=== PATIENT | female | born 1940 | race Caucasian/White ===

== ENCOUNTER → 2016-10-29 | Outpatient (CLI) | payer MEDICARE ==
--- NOTE | 2016-10-29 19:40 | US ---
EXAMINATION TYPE: US venous doppler duplex LE DATE OF EXAM: 10/29/2016 7:26 PM COMPARISON: NONE CLINICAL HISTORY: R60.0 Localized edema, Positive D Dimer. SIDE PERFORMED: Bilateral TECHNIQUE: The lower extremity deep venous system is examined utilizing real time linear array sonog carlitos with graded compression, doppler sonography and color-flow sonography. VESSELS IMAGED: External Iliac Vein (EIV) Common Femoral Vein Deep Femoral Vein Greater Saphenous Vein * Femoral Vein Popliteal Vein Small Saphenous Vein * Proximal Calf Veins (* superficial vessels) Right Leg: Negative for DVT Left Leg: Negative for DVT IMPRESSION: Grayscale, color doppler, spectral doppler imaging performed of the deep veins of the lo wer extremities. There is normal flow, compressibility, vascular waveforms bilaterally. No evidence of deep venous thrombosis in both legs.
== END | disposition home or self-care (01) ==
LOC: RADUSMAIN 19:02
PROVIDERS: ATTEND Family Medicine
DX: R60.0 Localized edema (principal); R79.1 Abnormal coagulation profile
CPT/HCPCS: 93970

== ENCOUNTER → 2017-04-28 | Outpatient (CLI) | payer MEDICARE ==
--- NOTE | 2017-04-28 08:37 | CT ---
EXAMINATION TYPE: CT chest wo con DATE OF EXAM: 04/28/2017 COMPARISON: NONE HISTORY: Interstitial lung disease CT DLP: 781.80 mGycm High-resolution noncontrast CT of the chest was performed with the patient in the prone and supine po sitions. Lung and mediastinal window settings are submitted. Noted are diminished lung volumes. Subpleural fibrosis seen at the lung bases as well as the upper lo bes right somewhat greater than left. There is no evidence for bronchiectasis, groundglass infiltrate , nodule or mass. No pleural effusion is identified. I do not see evidence for hilar or mediastinal mass or adenopathy. Small fixed hiatal hernia identified. IMPRESSION: 1. Diminished lung volumes with subpleural fibrosis as discussed.
== END | disposition home or self-care (01) ==
LOC: RADCTMAIN 07:38
PROVIDERS: ATTEND Internal Medicine Critical Care Medicine
DX: J98.4 Other disorders of lung (principal); J84.10 Pulmonary fibrosis, unspecified
CPT/HCPCS: 71250

== ENCOUNTER → 2018-04-06 | Outpatient (CLI) | payer MEDICARE ==
--- NOTE | 2018-04-06 09:15 | CT ---
EXAMINATION TYPE: High-resolution CT chest wo con DATE OF EXAM: 04/06/2018 COMPARISON: 04/28/2017 HISTORY: 77-year-old female follow-up Pulmonary Fibrosis TECHNIQUE: Contiguous high-resolution axial scanning of the chest utilizing 1 mm slice thickness and 1 cm gap or HRCT protocol without IV contrast. Both prone and supine imaging was performed. CT DLP: 181 mGycm Automated exposure control for dose reduction was used. FINDINGS: Heart borderline to mildly enlarged without pericardial effusion. A PFO closure device is present. Allowing for HRCT technique, prominent but nonenlarged 7 mm precarinal lymph node is noted. Otherwise , no thoracic lymphadenopathy seen. Aorta normal caliber with very direct takeoff of the left vertebral artery directly from the aortic a rch. There are increasing groundglass changes within the lungs. No jalyn honeycombing. No bronchiectasis. No discrete cystic change, consolidation, or pleural effusion. There is extensive respiratory motion further limiting assessment for pulmonary nodules. Some septal thickening and subpleural reticular changes There is a small to moderate size hiatal ji ia with some post surgical changes at the GE junction. Correlate as to the type of prior surgery. Bones: No osseous destructive process seen. IMPRESSION: 1. INCREASING GROUNDGLASS CHANGES COMPARED TO LAST YEAR. SUBPLEURAL RETICULATIONS REMAIN, GREATER IN THE LOWER LUNGS. NO HONEYCOMBING. CORRELATE FOR POSSIBLE ETIOLOGIES SUCH NSIP, DIP, OR HYPERSENSIT IVITY PNEUMONITIS. 2. SMALL TO MODERATE SIZE HIATAL HERNIA. THERE ARE SOME POSTSURGICAL CHANGES AT THE GE JUNCTION. ANDREW ELATE TO THE TYPE OF PRIOR SURGERY.
== END | disposition home or self-care (01) ==
LOC: RADCTMAIN 08:02
PROVIDERS: ATTEND Internal Medicine Critical Care Medicine
DX: J84.10 Pulmonary fibrosis, unspecified (principal); Z98.890 Other specified postprocedural states; Z88.0 Allergy status to penicillin; Z88.2 Allergy status to sulfonamides
CPT/HCPCS: 71250

== ENCOUNTER → 2020-05-17 | Outpatient (CLI) | payer MEDICARE ==
--- NOTE | 2020-05-17 14:15 | PE ---
EXAMINATION TYPE: PET CT fusion skull to thigh DATE OF EXAM: 05/17/2020 COMPARISON: Chest CT April 06, 2018 HISTORY: Breast cancer progress study. 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 TECHNIQUE: Following the intravenous administration of 12.6 mCi of F-18 FDG, whole body images are p erformed from the skull base to the midthigh. Images are reviewed on the computer in the coronal, ax ial, and sagittal planes. Reconstructed rotating images are created on independent workstation and r eviewed on the computer. A noncontrast CT is performed in conjunction with the PET scan. SCAN: Subsequent Scan FINDINGS: SKULL BASE AND NECK: No areas of suspicious hypermetabolic uptake. CHEST, MEDIASTINUM, AND HILAR REGION: Mild uptake diffuse uptake surrounding right shoulder presumed inflammatory, correlate clinically. No suspicious hypermetabolic uptake including bilateral breast and axillary region. ABDOMEN AND PELVIS: Normal excretion is seen. No suspicious hypermetabolic uptake. OSSEOUS STRUCTURES: No suspicious hypermetabolic uptake. OTHER CT: Some posterior mucosal thickening in the left sphenoid sinus. Respiratory motion artifact degradation in lung. Surgical change at level of the atrial septum. Small sized hiatal hernia with surgical change near diaphragmatic hiatus. Cholecystectomy clips. Extensive Surgical change in the lumbar spine with scoliotic curvature. Sigmoi d colonic diverticulosis. Uterus surgically absent or markedly atrophic. IMPRESSION: No suspicious hypermetabolic uptake to suggest active neoplastic recurrence
== END | disposition home or self-care (01) ==
LOC: RADPETMAIN 10:35
PROVIDERS: ATTEND Internal Medicine Hematology & Oncology
DX: C50.811 Malignant neoplasm of overlapping sites of right female breast (principal)
CPT/HCPCS: 78815; A9552

== ENCOUNTER 2022-07-15 07:01 | Day surgery (SDC) | payer MEDICARE ==
[~2022-07-15 07:01] MED LIST: LACTATED RINGERS 1,000 ML IV SCH; LIDOCAINE 1% (10MG/ML) FOR IV START INTRADERMA PRN; ONDANSETRON 4 MG/2 ML VIAL IVP PRN
[2022-07-15 07:47] LABS: Glucose,Whole Blood 206 mg/dL (70-110)
[2022-07-15] MEDS ORDERED: INSULIN ASPART (NovoLOG) 100 UNIT/ML VIAL SQ ONE (07:50)
[2022-07-15] MEDS ORDERED: LACTATED RINGERS 1,000 ML IV ONE (07:50)
[2022-07-15 07:53] VITALS: RESP 16; TEMP 97.5
[2022-07-15] MEDS ORDERED: PROPOFOL 10 MG/ML 20 ML VIAL IV ONE (08:21)
[2022-07-15] MEDS ORDERED: LIDOCAINE 2% INJ 20 MG/ML (2 ML VIAL) ONE (08:21)
--- NOTE | 2022-07-15 08:33 | P.PCN ---
Date of Procedure: 07/15/22 Procedure(s) Performed: BRIEF HISTORY: Patient is a 81-year-old, pleasant, white female scheduled for an upper endoscopy as a part of evaluation of progressive dysphagia to solids for the last 2 months duration. She lost 50 pounds during this time. She denies any heartburn.. PROCEDURE PERFORMED: Esophagogastroduodenoscopy with biopsy and dilation. PREOPERATIVE DIAGNOSIS: Progressive dysphagia to solids of 2 months duration/weight loss. IV sedation per anesthesia. PROCEDURE: After informed consent was obtained, the patient was brought into the endoscopy unit. IV sedation was administered by Anesthesia under continuous monitoring. Initially the Olympus GIF-140 video endoscope was inserted into the mouth. Esophagus intubated without any difficulty. It was gradually advanced into the stomach and duodenum and carefully examined. The bulb and the second part of the duodenum appeared normal. The scope at this time was withdrawn to the stomach, adequately insufflated with air, and upon careful examination, mucosa of the antrum, body, had mild diffuse gastritis and biopsies of this area. Mucosa of the cardia and the fundus appeared normal. There was evidence of previous Blake fundoplication noted. The scope was then withdrawn into the esophagus. The GE junction was located at 35 cm from the incisors. There was a distal esophageal whitish patent Schatzki's ring identified and this was dilated using 18-20 mm TTS balloon in a sequential fashion for 60 seconds. The rest of the. No evidence of esophageal stricture. Biopsies were done from the distal esophagus esophagus appeared normal. There were no erosions or ulcerations seen and the patient tolerated the procedure well. IMPRESSION: 1. Distal esophageal Schatzki's ring status post balloon dilation using 18-20 mm TTS balloon as described above. 2. Small hiatal hernia. 3. Evidence of previous Blake fundoplication 4. Mild antral gastritis RECOMMENDATIONS: The findings of this examination were discussed with the patient as well as his family.. She was advised to follow with the biopsy results. If she has persistent dysphagia she will follow up in office for further workup.
[2022-07-15 08:58] VITALS: BP 119/76; PULSE 62
== END 2022-07-15 09:20 | disposition home or self-care (01) ==
LOC: ORWHC2ENDO 07:01
PROVIDERS: ATTEND Internal Medicine Gastroenterology
DX: K22.2 Esophageal obstruction (principal); K29.50 Unspecified chronic gastritis without bleeding; K44.9 Diaphragmatic hernia without obstruction or gangrene; K20.90 Esophagitis, unspecified without bleeding; J44.9 Chronic obstructive pulmonary disease, unspecified; G47.33 Obstructive sleep apnea (adult) (pediatric); I63.9 Cerebral infarction, unspecified; F32.A Depression, unspecified; F41.9 Anxiety disorder, unspecified; G43.909 Migraine, unspecified, not intractable, without status migrainosus; Z88.0 Allergy status to penicillin; Z88.2 Allergy status to sulfonamides; Z79.890 Hormone replacement therapy; Z79.899 Other long term (current) drug therapy; Z79.1 Long term (current) use of non-steroidal anti-inflammatories (NSAID)
CPT/HCPCS: 43239; 43249; J2704; J2001; C1726; 88305